=== PATIENT | female | born 1970 | race Caucasian/White ===

== ENCOUNTER 2019-01-27 22:19 | Emergency (ER) | payer BC, OTHER ==
[2019-01-27 22:30] VITALS: BMI 42.9
--- NOTE | 2019-01-27 23:06 | PDOC ---
Attending Attestation - HPI HPI: 01/27/19 23:11 The patient is a 48 year old female with no PMH who presents to the ER for evaluation of chest pain that began at 9:30PM today. Patient states the chest pain was as sharp with radiation to the left shoulder and associated tingling down the left arm. Patient reports the chest pain resolved on its own shortly after. Patient denies any symptoms at this time. Denies shortness of breath, leg swelling, headache, nausea, vomiting, diarrhea, constipation, or urinary symptoms. Allergies: NKDA Social Hx: Denies toxic habits Surgeries: None reported. PCP: Dr. Noble - Physicial Exam PE: 01/27/19 23:15 Agrees with resident's exam. <Shanon Purdy - Last Filed: 01/27/19 23:11> - Resident Resident Name: Phani Sanders - ED Attending Attestation I have performed the following: I have examined & evaluated the patient, The case was reviewed & discussed with the resident, I agree w/resident's findings & plan - Medical Decision Making 01/28/19 00:08 48-year-old female with intermittent chest pain radiating into the left arm Heart score is 2 EKG shows no acute ST changes Plan for troponin 2 with discharge home with continued outpatient follow-up with cardiology for baseline testing <Sarai Oglesby - Last Filed: 01/28/19 00:09>
--- NOTE | 2019-01-27 23:20 | PDOC ---
History of Present Illness - General Chief Complaint: Chest Pain Stated Complaint: CHEST PAIN Time Seen by Provider: 01/27/19 22:54 History Source: Patient Exam Limitations: No Limitations - History of Present Illness Initial Comments: 01/27/19 23:15 Patient is a 48F with history of obesity here today complaining of chest pain that onset at 21:30 today. Patient endorses a stabbing chest pain that is intermittent and lasts for a few minutes each time. Patient states that she also had an episode of pain to her left shoulder and tingling down her arm. Denies fevers, chills, nausea, vomiting. Denies facial droop, arm weakness, leg weakness. Denies history of blood clots, recent travel, leg swelling. Past History - Past Medical History Allergies/Adverse Reactions: Allergies Allergy/AdvReac Type Severity Reaction Status Date / Time No Known Allergies Allergy Verified 01/27/19 22:30 Home Medications: Ambulatory Orders Naproxen [Naprosyn -] 500 mg PO BID #14 tablet 01/21/15 COPD: No - Suicide/Smoking/Psychosocial Hx Smoking History: Never smoked Have you smoked in the past 12 months: No Information on smoking cessation initiated: No Hx Alcohol Use: No Drug/Substance Use Hx: No Review of Systems - Review of Systems Able to Perform ROS?: Yes Comments:: 01/27/19 23:19 GENERAL/CONSTITUTIONAL: No fever or chills. No weakness. HEAD, EYES, EARS, NOSE AND THROAT: No change in vision. No sore throat. CARDIOVASCULAR: +chest pain no shortness of breath RESPIRATORY: No cough, wheezing, or hemoptysis. GASTROINTESTINAL: No nausea, vomiting, diarrhea or constipation. GENITOURINARY: No dysuria, frequency, or change in urination. MUSCULOSKELETAL: No joint or muscle swelling or pain. No neck or back pain. SKIN: No rash NEUROLOGIC: No headache, vertigo, loss of consciousness, or change in strength/ sensation. ENDOCRINE: No increased thirst. No abnormal weight change HEMATOLOGIC/LYMPHATIC: No anemia, easy bleeding, or history of blood clots. ALLERGIC/IMMUNOLOGIC: No hives or skin allergy. *Physical Exam - Vital Signs Last Vital Signs Temp Pulse Resp BP Pulse Ox 97.6 F 83 16 152/83 100 01/27/19 22:28 01/27/19 22:28 01/27/19 22:28 01/27/19 22:28 01/27/19 22:28 - Physical Exam Comments: 01/27/19 23:20 GENERAL: Awake, alert, and fully oriented, in no acute distress HEAD: No signs of trauma, normocephalic, atraumatic EYES: PERRLA, EOMI, sclera anicteric, conjunctiva clear ENT: Auricles normal inspection, hearing grossly normal, nares patent, oropharynx clear without exudates. Moist mucosa NECK: Normal ROM, supple, no lymphadenopathy, JVD, or masses LUNGS: No distress, speaks full sentences, clear to auscultation bilaterally HEART: Regular rate and rhythm, normal S1 and S2, no murmurs, rubs or gallops, peripheral pulses normal and equal bilaterally. ABDOMEN: Soft, nontender, normoactive bowel sounds. No guarding, no rebound. No masses EXTREMITIES: Normal inspection, Normal range of motion, no edema. No clubbing or cyanosis. NEUROLOGICAL: Cranial nerves II through XII grossly intact. Normal speech, normal gait, no focal sensorimotor deficits SKIN: Warm, Dry, normal turgor, no rashes or lesions noted. Moderate Sedation - Procedure Monitoring Vital Signs: Procedure Monitoring Vital Signs Temperature 97.6 F 01/27/19 22:28 Pulse Rate 83 01/27/19 22:28 Respiratory Rate 16 01/27/19 22:28 Blood Pressure 152/83 01/27/19 22:28 O2 Sat by Pulse Oximetry (%) 100 01/27/19 22:28 Heart Score/ECG Review - History History: Slightly suspicious - Electrocardiogram EKG: Normal - Age Age: 45-65 - Risk Factors Risk Factors Heart Score: Yes Hx Obesity Based on the list above the patient has:: 1-2 risk factors - Troponin Troponin: </= normal limit - Score Heart Score - Total: 2 ED Treatment Course - LABORATORY CBC & Chemistry Diagram: 01/27/19 23:57 01/27/19 23:57 - RADIOLOGY Radiology Studies Ordered: Category Date Time Status CHEST PA & LAT [RAD] Stat Radiology 01/27/19 23:03 Ordered Medical Decision Making - Medical Decision Making 01/27/19 23:20 Patient is 48F here today with chest pain. Low risk, atypical. Vitals normal and stable. DDx includes, but is not limited to: acs, pneumonia, esophageal spasm. EKG shows nsr, no st elevations/depressions. Normal axis. No significant t wave abnormalities. Normal intervals. HEART score 2. Will HEART pathway, likely discharge. 01/28/19 03:05 Trop negative. CBC, CMP normal. CXR clear. Will discharge with return precautions and instructions to f/u with pcp. *DC/Admit/Observation/Transfer Diagnosis at time of Disposition: Chest pain - Discharge Dispostion Disposition: HOME Condition at time of disposition: Good Decision to Admit order: No - Referrals Referrals: Jhon Noble [Primary Care Provider] - Shawn Medrano MD [Staff Physician] - - Patient Instructions Printed Discharge Instructions: DI for Chest Pain Additional Instructions: Please follow up with your primary care physician this week. Please call cardiology to make an appointment. If you do not have one, a front end application developer is listed below. Please return if you have any new worsening or concerning symptoms, especially fever, increasing pain and shortness of breath. - Post Discharge Activity Forms/Work/School Notes: Back to Work
[2019-01-28 00:15] LABS: BASO % 0.9 % (0-2.0); EOS % 1.4 % (0-4.5); HEMATOCRIT 40.9 % (32.4-45.2); LYMPH % 29.5 % (8-40); MCH 30.2 pg (25.7-33.7); MCHC 34.2 g/dl (32.0-36.0); MEAN CELL VOLUME 88.3 fl (80-96); MEAN PLT VOLUME 9.2 fl (7.5-11.1); MONO % 7.1 % (3.8-10.2); NEUT % 61.1 % (42.8-82.8); PLATELET COUNT 243 K/MM3 (134-434); RBC 4.63 M/mm3 (3.60-5.2); RDW 14.2 % (11.6-15.6); WHITE BLOOD COUNT 8.6 K/mm3 (4.0-10.0)
[2019-01-28 00:41] LABS: INR 0.96 (0.83-1.09); PROTHROMBIN TIME (PATIENT) 11.3 SEC (9.7-13.0)
[2019-01-28 00:52] LABS: ALBUMIN 3.9 g/dl (3.4-5.0); ALK PHOS 89 U/L (45-117); ANION GAP 3 MMOL/L (8-16); BILIRUBIN,TOTAL 0.2 mg/dL (0.2-1); BLOOD UREA NITROGEN 18 mg/dL (7-18); CHLORIDE 105 mmol/L (98-107); CO2 31 mmol/L (21-32); CREATININE 0.8 mg/dL (0.55-1.3); GLUCOSE,RANDOM 96 mg/dL (74-106); MAGNESIUM 2.4 mg/dL (1.8-2.4); POTASSIUM 4.2 mmol/L (3.5-5.1); SGOT/AST 18 U/L (15-37); SGPT/ALT 25 U/L (13-61); SODIUM 139 mmol/L (136-145); TOT PROT 7.3 g/dl (6.4-8.2)
[2019-01-28 03:24] VITALS: BP 124/72; PULSE 77; TEMP 98.3
--- NOTE | 2019-01-28 11:05 | EKG ---
Test Reason : Blood Pressure : / mmHG Vent. Rate : 075 BPM Atrial Rate : 075 BPM P-R Int : 142 ms QRS Dur : 088 ms QT Int : 386 ms P-R-T Axes : 057 017 045 degrees QTc Int : 431 ms NORMAL SINUS RHYTHM LOW VOLTAGE QRS BORDERLINE ECG WHEN COMPARED WITH ECG OF 25-JUL-2004 04:24, NO SIGNIFICANT CHANGE WAS FOUND Confirmed by VIKKI FLORES MD ([id number]) on 01/28/2019 11:05:06 AM Referred By: Confirmed By:VIKKI FLORES MD
== END 2019-01-28 03:24 | disposition home or self-care (01) ==
LOC: JER 22:19
DX: R07.9 Chest pain, unspecified (principal)
CPT/HCPCS: 36415; 71046-TC-FY; 80053; 82550; 83735; 84484; 85025; 85610; 93005; 93010; 99283-25